=== PATIENT | female | born 1980 | race Caucasian/White ===

== ENCOUNTER 2021-09-17 16:58 | Emergency (ER) | payer OTHER ==
--- OUTSIDE RECORDS SUMMARY | 2021-09-17 17:03 | XMS REPORT | Continuity of Care Document ---
:1980 Author Organization [facility] t Address [address] [place] [address] Care Team Providers Name Role Phone PCP, DOES NOT HAVE A Primary Care Physician Unavailable Oj HOUSING DEVELOPMENT SPECIALIST Attending Clinician MCWILLIAMS Attending Clinician Unavailable Pob1, Care Clinic Attending Clinician Unavailable Anene HOUSING DEVELOPMENT SPECIALIST Attending Clinician ANENE Attending Clinician Unavailable Payers Payer Name Policy Type Policy Number Effective Date Expiration Date S ource Problems Condition Condition Condition Status Onset Resolution Last Treating Co mments Source Name Details Category Date Date Treatment Clinician Date No known No known Disease Unive rs active active ity of problems problems [facility] Allergies, Adverse Reactions, Alerts Allergy Allergy Status Severity Reaction(s) Onset Inactive Treating Comm ents Source Name Type Date Date Clinician NO KNOWN Drug Active Univers ALLERGIE Class ity of S [facility] Social History Social Habit Start Date Stop Date Quantity Comments Source Exposure to Not sure [facility] SARS-CoV-2 (event) Medica l Branch Cigarettes smoked 2019-10-26 2019-10-26 [facility] current (pack per 00:00:00 00:00:00 [facility] [place] day) - Reported Tobacco use and 2019-10-26 2019-10-26 Never used [facility] exposure 00:00:00 00:00:00 [facility] Sex Ass[birth year] At [birth year] [facility] 00:00:00 00:00:00 [facility] Smoking Status Start Date Stop Date Source Current every day smoker 2019-10-26 00:00:00 [facility] [place] [facility] Medications Ordered Filled Start Stop Current Ordering Indication Dosage Frequency Signature Comments Components Source Medication Medication Date Date Medication? Clinician (SIG) Name Name cefTRIAXone 2021- No 1000mg 1,000 mg, Univers (ROCEPHIN) 07-13 IV ity of 1,000 mg in 20:45: 20:10 Piggyback, [place] NaCl 0.9% 00 :00 ONCE, 1 Medical (NS) 50 mL dose, On Branc h MINI-BAG [place] 07/13/21 at 1445, Administer over 30 Minutes, 50 mL
R mery for Anti-Infec tive: Documented Infection< br>Documen ana m Infection Site: Urine<br&g t;Duration of Therapy: 7 days ondansetron 2021- No 4mg 4 mg, Slow Univers (ZOFRAN 07-13 IV Push, ity of (PF)) 19:15: 18:15 ONCE, 1 [place] injection 4 00 :00 dose, On Medi bib mg [place] 07/13/21 Branch at 1315, APARNA ketorolac 2021- No 30mg 30 mg, Unive rs (TORADOL) 07-13 Slow IV ity of injection 19:15: 18:15 Push, [place] 30 mg 00 :00 ONCE, 1 Medical dose, On Branch 07/13/21 at 1315, APARNA NaCl 0.9% 2021- No 1000mL at 999 Uni vers (NS) bolus 07-13 mL/hr, ity of infusion 19:15: 20:27 1,000 mL, Jermaine as 1,000 mL 00 :00 IV Medical Infusion, Branch ONCE, 1 dose, On 07/13/21 at 1315, APARNA ondansetron Yes [id number] 4mg Take 1 Univers (ZOFRAN 1-09 tablet by ity of ODT) 4 mg 00:00: mouth [place] disintegrat 00 every 8 Medic al ing tablet (eight) Branch hours as needed for Nausea and Vomiting (N/V). butalbital- Yes [id number] 1{tbl} Take 1 Univers acetaminoph 1-09 tablet by ity of en-caff 00:00: mouth [place] 50-325-40 00 every 6 Medical mg tablet (six) Branch hours as needed for Pain (scale 7-10). cefdinir 2021- Yes [id number] 300mg Take 1 U nivers 300 mg 07-13 capsule by ity of capsule 00:00: 05:59 mouth 2 [place] 00 :00 (two) Medical times Branch daily for 7 days. No known No Univers medications ity of [facility] Vital Signs Vital Name Observation Time Observation Value Comments Source Systolic blood 2021-07-13 17:41:00 174 mm[Hg] Univer sity of [facility] Diastolic blood 2021-07-13 17:41:00 100 mm[Hg] Unive rsity of [facility] Heart rate 2021-07-13 17:41:00 98 /min Universi ty of [facility] Body temperature 2021-07-13 17:41:00 37.44 [facility] Res[facility] rate 2021-07-13 17:41:00 17 /min [facility] ersity of [facility] Body height 2021-07-13 17:41:00 165.1 cm Universi ty of [facility] Body weight 2021-07-13 17:41:00 61.236 kg Universi ty of [facility] BMI 2021-07-13 17:41:00 22.47 kg/m2 Universi ty [facility] Oxygen saturation in 2021-07-13 17:41:00 99 /min [facility] Arterial blood by [facility] Pulse oximetry Branch Diastolic blood 2019-10-26 13:18:00 89 mm[Hg] Unive rsity of [facility] Heart rate 2019-10-26 13:18:00 108 /min Universi ty of [facility] Body temperature 2019-10-26 13:18:00 37.33 Verenice [facility] ersity [facility] Respiratory rate 2019-10-26 13:18:00 17 /min [facility] ersity [facility] Body height 2019-10-26 13:18:00 167.6 cm Universi ty of [facility] Body weight 2019-10-26 13:18:00 68.04 kg Universi ty of [facility] BMI 2019-10-26 13:18:00 24.21 kg/m2 Universi ty of [facility] Oxygen saturation in 2019-10-26 13:18:00 98 /min University Arterial blood by [facility] Pulse oximetry Branch Systolic blood 2019-10-26 13:18:00 137 mm[Hg] Univkatie sity of pressure [facility] Procedures Procedure Date / Time Performed Performing Clinician Sourc e LIPASE 2021-07-13 18:15:00 Roderick Mcwilliams [facility] COMP. METABOLIC PANEL 2021-07-13 18:15:00 Roderick Mcwilliams [facility] ([id number]) [facility] CBC WITH DIFF 2021-07-13 18:15:00 Roderick Mcwilliams [facility] URINALYSIS 2021-07-13 18:15:00 Roderick Mcwilliams [facility] NOTICE OF PRIVACY 2021-07-13 17:26:51 Doctor Unassigned, No Univ [facility] PRACTICES Name [facility] CONSENT/REFUSAL FOR 2021-07-13 17:22:23 Doctor Unassigned, No [facility] AND Name [facility] TREATMENT Encounters Start End Encounter Admission Attending Care Care Encounter Source Date/Time Date/Time Type Type Clinicians Facility Department ID 2021-07-13 2021-07-13 [facility] [id number] Univers 11:42:00 14:30:00 Roderick HSIEH [id number] i ty [facility] [id number] [facility] [id number] [facility] 084 Branch 2021-07-13 2021-07-13 Emergency X OJ [facility] ERT [id number] Univers 11:42:00 14:30:00 RODERICK ity [facility] 2019-10-26 2019-10-26 Urgent Pob1, Acute Care Clinic [facility] [id number] Univers 08:11:40 08:31:40 [id number] [facility] [id number] Ok dical nal 044 Branch Office [address] 2019-10-26 2019-10-26 Outpatient R [facility] [id number] Univers 08:20:00 08:20:00 TRICIA [facility] Results Test Description Test Time Test Comments Results Result Comments Source CBC WITH DIFF 2021-07-13 19:16:11 Test Item Value Reference Range Interpretation Comme nts WBC (test code = 6690-2) See_Comment L [A utomated message] The system which ge nerated this result transmit ana m reference range: 4.30 - 1 1.10 10*3/?L. The reference r eleuterio was not used to interpr et this result as normal/abnor mal. RBC (test code = 789-8) See_Comment [Au tomated message] The system which ge nerated this result transmit ana m reference range: 3.93 - 5 .25 10*6/?L. The reference r eleuterio was not used to interpr et this result as normal/abnor mal. HGB (test code = 718-7) 16.0 g/dL 11.6-15.0 H HCT (test code = 4544-3) 47.0 % 35.7-45.2 H MCV (test code = 787-2) 90.9 fL 80.6-95.5 MCH (test code = 785-6) 30.9 pg 25.9-32.8 MCHC (test code = 786-4) 34.0 g/dL 31.6-35.1 RDW-SD (test code = 06941-9) 40.6 fL 39.0-49.9 RDW-CV (test code = 788-0) 12.0 % 12.0-15.5 PLT (test code = 777-3) See_Comment L [Au tomated message] The system which ge nerated this result transmit ana m reference range: 166 - 35 8 10*3/?L. The reference range was not used to interpret th is result as normal/abnormal . MPV (test code = 42654-5) 10.6 fL 9.5-12.9 IPF % (test code = 3.9 % 1.3-7.7 Platelet count measured by [id number]) fluorescence me thod. NRBC/100 WBC (test code = See_Comment [ Automated message] The 2953161908) system which ge nerated this result transmit ana m reference range: 0.0 - 10 .0 /100 WBCs. The reference r eleuterio was not used to interpr et this result as normal/abnor mal. NRBC x10^3 (test code = <0.01 See_Comment [Au tomated message] The 3435855505) system which ge nerated this result transmit ana m reference range: 10*3/?L. The reference range was not u sed to interpret this result as normal/abnormal . GRAN MAT (NEUT) % (test code 58.6 % = 770-8) IMM GRAN % (test code = 0.30 % 8842424568) LYMPH % (test code = 736-9) 32.0 % MONO % (test code = 5905-5) 8.5 % EOS % (test code = 713-8) 0.3 % BASO % (test code = 706-2) 0.3 % GRAN MAT x10^3(ANC) (test 1.94 10*3/uL 1.88-7.09 code = 2306165861) IMM GRAN x10^3 (test code = <0.03 0.00-0.06 1949558822) LYMPH x10^3 (test code = 1.06 10*3/uL 1.32-3.29 L 731-0) MONO x10^3 (test code = 0.28 10*3/uL 0.33-0.92 L 742-7) EOS x10^3 (test code = <0.03 0.03-0.39 L 711-2) BASO x10^3 (test code = <0.03 0.01-0.07 704-7) Lab Interpretation (test Abnormal code = 71814-3) [facility] ([id number])2021-07-13 18:59:08 Test Item Value Reference Range Interpretation Comments NA (test code = 139 mmol/L 135-145 7018859336) K (test code = 4.9 mmol/L 3.5-5.0 7153682164) CL (test code = 104 mmol/L 98-108 9351317714) CO2 TOTAL (test code = 25 mmol/L 23-31 4770193551) AGAP (test code = 2-16 2192427674) BUN (test code = 10 mg/dL 7-23 0173614269) GLUCOSE (test code = 88 mg/dL 70-110 3200623572) CREATININE (test code = 0.66 mg/dL 0.50-1.04 3612250699) TOTAL BILI (test code = 0.9 mg/dL 0.1-1.9 3732551250) CALCIUM (test code = 9.3 mg/dL 8.6-10.6 2138814395) T PROTEIN (test code = 8.8 g/dL 6.3-8.2 H 7860628011) ALBUMIN (test code = 5.1 g/dL 3.5-5.0 H 5241405208) ALK PHOS (test code = 42 U/L 34-122 6870263611) ALTv (test code = 101 U/L 5-35 H 1742-6) AST(SGOT) (test code = 95 U/L 13-40 H 3211633338) eGFR (test code = mL/min/1.73m2 3372209728) JENNIFER (test code = JENNIFER) Association of Glomerular Filtration Rate (GFR) and Staging of Kidney Disease* + --+ --+ ------+| GFR (mL/min/1.73 m2) ?| With Kidney Damage ?| ?Without Kidney Damage+ --------+ --------+ +| ?>90 ?| ?Stage one ?| ? Normal ?+ ---+ ---+ -------+| ?60-89 ?| ?Stage two ?| ? Decreased GFR ? + --+ --+ ------+| ?30-59 ?| ?Stage three ?| ? Stage three ? + --+ --+ ------+| ?15-29 ?| ?Stage four ? | ? Stage four ?+ ---+ ---+ -------+| ?<15 (or dialysis) ? ?| ?Stage five ? | ? Stage five ?+ ---+ ---+ -------+ *Each stage assumes the associated GFR level has been in effect for at least three months. ?Stages 1 to 5, with or without kidney disease, indicate chronic kidney disease. Notes: Determination of stages one and two (with eGFR >59mL/min/1.73 m2) requires estimation of kidney damage for at least three months as defined by structural or functional abnormalities of the kidney, manifested by either:Pathological abnormalities or Markers of kidney damage (including abnormalities in the composition of the blood or urine or abnormalities in imaging tests). Lab Interpretation Abnormal (test code = 29506-2) [facility] 18:58:47 Test Item Value Reference Range Interpretation Comments LIPASE (test code = 2174842079) 124 U/L 0-220 Lab Interpretation (test code = Normal 81048-1) [facility]"
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
[2021-09-17 18:36] VITALS: BP 172/107; TEMP 98.1; O2SAT 100
== END 2021-09-17 18:23 | disposition home or self-care (01) ==
LOC: ER 16:58
DX: G44.89 Other headache syndrome (principal); Y08.89XA Assault by other specified means, initial encounter
CPT/HCPCS: 70450; 99283